=== PATIENT | male | born 1960 | race Caucasian/White ===

== ENCOUNTER 2023-03-16 14:31 | Emergency (ER) | payer OTHER ==
[~2023-03-16] VITALS: Ht 177.8 cm; Wt 108.9 kg
[2023-03-16 15:59] LABS: BASO % 0.3 % (0.0-1.0); EOS # 0.2 10*3/uL (0.0-0.4); HEMATOCRIT 44.2 % (42.0-52.0); LYMPH # 1.8 10*3/uL (1.3-4.4); LYMPH % 29.6 % (27.0-41.0); MEAN CELL VOLUME 86.5 fl (80.0-94.0); MEAN CORPUSCULAR HGB 29.5 pg (27.0-31.0); MEAN CORPUSCULAR HGB CONC 34.2 g/dl (33.0-37.0); MEAN PLATELET VOLUME 9.7 fl (9.6-12.3); MONO # 0.5 10*3/uL (0.1-1.0); MONO % 7.9 % (3.0-9.0); NEUT # 3.5 10*3/uL (2.3-7.9); NEUT % 59.2 % (47.0-73.0); PLATELET COUNT AUTOMATED 180 10*3/uL (130-400); RED BLOOD COUNT 5.11 10*6/uL (4.50-5.90); RED CELL DISTRI WIDTH 13.2 % (0-14.5); WHITE BLOOD COUNT 5.9 10*3/uL (4.8-10.8)
[2023-03-16 16:21] LABS: ALKALINE PHOSPHATASE 139 U/L (46-116); BUN 13 mg/dl (9-23); CHLORIDE 106 mmol/L (98-107); SGPT/ALT 30 U/L (5-49); TOTAL PROTEIN 6.6 gm/dL (6.0-8.0)
[2023-03-16] MEDS ORDERED: ONDANSETRON4 MG SL (16:46)
[2023-03-16] MEDS ORDERED: CIPRO500 MG PO (16:46)
== END 2023-03-16 17:30 | disposition home or self-care (01) ==
LOC: ED 14:31
PROVIDERS: Emergency Medicine
DX: R11.2 Nausea with vomiting, unspecified (principal); R19.7 Diarrhea, unspecified

== ENCOUNTER 2023-07-21 04:54 | Emergency (ER) | payer MEDICARE, MEDICAID ==
[~2023-07-21] VITALS: Ht 177.8 cm; Wt 104.3 kg
[~2023-07-21 04:54] MED LIST: CIPRO500 MG PO; ONDANSETRON4 MG SL
[2023-07-21 05:53] LABS: ALKALINE PHOSPHATASE 111 U/L (46-116); BUN 18 mg/dl (9-23); CHLORIDE 105 mmol/L (98-107); SGPT/ALT 26 U/L (5-49); TOTAL PROTEIN 6.8 gm/dL (6.0-8.0)
[2023-07-21 06:11] LABS: BASO % 0.5 % (0.0-1.0); EOS # 0.3 10*3/uL (0.0-0.4); EOS % 4.9 % (1.0-4.0); HEMATOCRIT 46.9 % (42.0-52.0); LYMPH # 2.1 10*3/uL (1.3-4.4); LYMPH % 33.8 % (27.0-41.0); MEAN CELL VOLUME 87.2 fl (80.0-94.0); MEAN CORPUSCULAR HGB 28.3 pg (27.0-31.0); MEAN CORPUSCULAR HGB CONC 32.4 g/dl (33.0-37.0); MEAN PLATELET VOLUME 10.4 fl (9.6-12.3); MONO # 0.7 10*3/uL (0.1-1.0); MONO % 10.8 % (3.0-9.0); NEUT # 3.1 10*3/uL (2.3-7.9); NEUT % 49.8 % (47.0-73.0); PLATELET COUNT AUTOMATED 198 10*3/uL (130-400); RED BLOOD COUNT 5.38 10*6/uL (4.50-5.90); RED CELL DISTRI WIDTH 13.7 % (0-14.5); WHITE BLOOD COUNT 6.1 10*3/uL (4.8-10.8)
== END 2023-07-21 07:40 | disposition home or self-care (01) ==
LOC: ED 04:54
PROVIDERS: Internal Medicine
DX: R07.89 Other chest pain (principal); I10 Essential (primary) hypertension; R74.8 Abnormal levels of other serum enzymes; R11.0 Nausea

== ENCOUNTER 2023-10-24 10:23 | Emergency (ER) | payer MEDICARE, MEDICAID ==
[~2023-10-24] VITALS: Ht 177.8 cm; Wt 108.9 kg
[2023-10-24] MEDS ORDERED: ATORVASTATIN CA80 M1 PO (11:10)
[2023-10-24] MEDS ORDERED: VASCEPA1 G1 PO (11:10)
[2023-10-24] MEDS ORDERED: BRILINTA60 MG PO (11:10)
[2023-10-24] MEDS ORDERED: OZEMPIC2 MG/0.71 SQ (11:11)
[2023-10-24] MEDS ORDERED: HYDROCODONE-AC1 EAC2 PO (11:11)
[2023-10-24] MEDS ORDERED: METOPROLOL TAR100 M1 PO (11:12)
[2023-10-24] MEDS ORDERED: IMDUR SA30 MG PO (11:12)
[2023-10-24] MEDS ORDERED: TAMSULOSIN HCL0.4 MG PO (11:13)
[2023-10-24] MEDS ORDERED: PREGABALIN75 MG PO (11:13)
[2023-10-24] MEDS ORDERED: LOSARTAN POTAS100 M1 PO (11:13)
[2023-10-24] MEDS ORDERED: AZELASTINE137 MCG/0. NAS (11:13)
[2023-10-24] MEDS ORDERED: OMEPRAZOLE40 MG PO (11:14)
[2023-10-24] MEDS ORDERED: PREDNISONE20 M1 PO (12:50)
[2023-10-24] MEDS ORDERED: methylPREDNISolone sod succ 125 MG VIAL IM ONE (12:55)
== END 2023-10-24 13:17 | disposition home or self-care (01) ==
LOC: ED 10:23
DX: S46.912A Strain of unspecified muscle, fascia and tendon at shoulder and upper arm level, left arm, initial encounter (principal); M19.012 Primary osteoarthritis, left shoulder; I10 Essential (primary) hypertension; X50.0XXA Overexertion from strenuous movement or load, initial encounter; Y93.89 Activity, other specified; Y92.89 Other specified places as the place of occurrence of the external cause; Y99.8 Other external cause status

== ENCOUNTER 2024-08-29 09:04 | Emergency (ER) | payer OTHER, MEDICAID ==
[~2024-08-29] VITALS: Wt 106.6 kg
[~2024-08-29 09:04] MED LIST changes: +ATORVASTATIN CA80 M1 PO; +AZELASTINE137 MCG/0. NAS; +BRILINTA60 MG PO; +HYDROCODONE-AC1 EAC2 PO; +IMDUR SA30 MG PO; +LOSARTAN POTAS100 M1 PO; +METOPROLOL TAR100 M1 PO; +OMEPRAZOLE40 MG PO; +OZEMPIC2 MG/0.71 SQ; +PREDNISONE20 M1 PO; +PREGABALIN75 MG PO; +TAMSULOSIN HCL0.4 MG PO; +VASCEPA1 G1 PO
[2024-08-29] MEDS ORDERED: Sulfamethoxazole/Trimethopri 1 TAB TAB PO ONE (09:45)
[2024-08-29] MEDS ORDERED: SEPTDS PO (09:46)
[2024-08-29] MEDS ORDERED: CIPROFLOXACIN H10 ML OPH (09:46)
== END 2024-08-29 09:50 | disposition home or self-care (01) ==
LOC: ED 09:04
DX: H10.9 Unspecified conjunctivitis (principal); H00.014 Hordeolum externum left upper eyelid; Z79.899 Other long term (current) drug therapy; Z98.890 Other specified postprocedural states

== ENCOUNTER 2024-12-03 10:28 | Emergency (ER) | payer OTHER, MEDICAID ==
[~2024-12-03] VITALS: Ht 177.8 cm; Wt 104.3 kg
[~2024-12-03 10:28] MED LIST changes: +CIPROFLOXACIN H10 ML OPH; +SEPTDS PO
== END 2024-12-03 12:10 | disposition home or self-care (01) ==
LOC: ED 10:28
DX: S92.102A Unspecified fracture of left talus, initial encounter for closed fracture (principal); I10 Essential (primary) hypertension; W10.9XXA Fall (on) (from) unspecified stairs and steps, initial encounter; Y93.89 Activity, other specified; Y92.89 Other specified places as the place of occurrence of the external cause; Y99.8 Other external cause status